=== PATIENT | male | born 1975 | race African-American/Black ===

== ENCOUNTER 2017-05-02 04:01 | Emergency (ER) | payer MEDICAID ==
[~2017-05-02] VITALS: Ht 170.2 cm; Wt 106.8 kg
[~2017-05-02 04:01] MED LIST: BACDS PO; CYCL-1 PO; HYDR-3972 PO; HYDR-569 PO; HYDR1TAB PO; IBUPROFEN
[2017-05-02 04:48] VITALS: BP 137/94
== END 2017-05-02 04:51 | disposition home or self-care (01) ==
LOC: ER 04:02
DX: K08.89 Other specified disorders of teeth and supporting structures (principal); F17.200 Nicotine dependence, unspecified, uncomplicated; F12.10 Cannabis abuse, uncomplicated; G43.909 Migraine, unspecified, not intractable, without status migrainosus; M19.90 Unspecified osteoarthritis, unspecified site; Z87.442 Personal history of urinary calculi; Z98.890 Other specified postprocedural states; Z88.1 Allergy status to other antibiotic agents; Z79.899 Other long term (current) drug therapy
CPT/HCPCS: 99281

== ENCOUNTER 2017-10-20 11:05 | Emergency (ER) | payer MEDICAID ==
[~2017-10-20] VITALS: Ht 170.2 cm; Wt 97.0 kg
[2017-10-20 11:20] VITALS: BP 126/84
[2017-10-20] MEDS ORDERED: HYDROcodone/acetaminophen 10/325mg tab PO ONE (12:25)
[2017-10-20] MEDS ORDERED: ondansetron 4mg rapidly disintigrating tab PO ONE (12:25)
[2017-10-20] MEDS ORDERED: diazepam 5mg tablet PO ONE (12:25)
[2017-10-20] MEDS ORDERED: CYCL-1 PO (12:54)
[2017-10-20] MEDS ORDERED: IBUP-1984 PO (12:54)
== END 2017-10-20 13:08 | disposition home or self-care (01) ==
LOC: ER 11:06
DX: M54.2 Cervicalgia (principal); G43.909 Migraine, unspecified, not intractable, without status migrainosus; F12.90 Cannabis use, unspecified, uncomplicated; Z98.890 Other specified postprocedural states; Z88.1 Allergy status to other antibiotic agents; Z79.1 Long term (current) use of non-steroidal anti-inflammatories (NSAID); Z79.2 Long term (current) use of antibiotics
CPT/HCPCS: 72125; 99284

== ENCOUNTER 2018-08-20 17:33 | Emergency (ER) | payer MEDICAID ==
[~2018-08-20] VITALS: Ht 170.2 cm; Wt 100.0 kg
[~2018-08-20 17:33] MED LIST changes: +HYDR-4383 PO; -HYDR-569 PO
[2018-08-20 17:41] VITALS: BP 147/90
[2018-08-20] MEDS ORDERED: INDO25CA18 PO (18:41)
== END 2018-08-20 18:59 | disposition home or self-care (01) ==
LOC: ER 17:34
DX: M10.9 Gout, unspecified (principal); G43.909 Migraine, unspecified, not intractable, without status migrainosus; M19.90 Unspecified osteoarthritis, unspecified site; F12.90 Cannabis use, unspecified, uncomplicated; Z87.442 Personal history of urinary calculi; Z88.1 Allergy status to other antibiotic agents; Z79.899 Other long term (current) drug therapy
CPT/HCPCS: 73660; 99283